=== PATIENT | male | born 1980 | race African-American/Black ===

== ENCOUNTER 2020-02-12 17:25 | Emergency (ER) | payer SELFPAY ==
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
--- NOTE | 2020-02-12 19:26 | RADIOLOGY REPORT (SQ) ---
EXAM DESCRIPTION: CT FACIAL AREA WITHOUT IMAGES COMPLETED DATE/TIME: 02/12/2020 7:12 pm REASON FOR STUDY: left mandibular injury COMPARISON: None. TECHNIQUE: Noncontrasted images through the facial bones and orbits windowed for bone and soft tissu e. Additional coronal and sagittal reconstructed images reviewed. All images stored on PACS. All CT scanners at this facility use dose modulation, iterative reconstruction, and/or weight based d osing when appropriate to reduce radiation dose to as low as reasonably achievable (ALARA). [facility]: Dose Right [facility]: CareDose [facility]: Dose Right [facility]: Teradose 4D [facility]: [employer] RADIATION DOSE: CT Rad equipment meets quality standard of care and radiation dose reduction techniq ues were employed. CTDIvol: 30.4 mGy. DLP: 576 mGy-cm. mGy. LIMITATIONS: None. FINDINGS: FACIAL BONES: There is a fracture of the mandible just to the right of the midline. There is a 2nd fracture of the mandible at the level of the coronoid process on the left. There is a ques tionable fracture of the superior nasal spine with minimal depression of the distal fragment. This m ay not be acute, given the absence of significant soft tissue swelling in this area. ORBITS: Intact. No fracture. Symmetric intact globes and retroorbital soft tissues. PARANASAL SINUSES: Clear. No significant mucosal thickening, mass or fluid. No nasal polyps. Maxill elinor sinus outlets are patent. SOFT TISSUES: No mass or edema. INFERIOR BRAIN: Limited view. No acute findings. OTHER: No other significant finding. IMPRESSION: Mandibular fractures as described. Questionable fracture of the superior nasal spine. TECHNICAL DOCUMENTATION: JOB ID: [id number] Quality ID # [id number]: Final reports with documentation of one or more dose reduction techniques (e.g., Au tomated exposure control, adjustment of the mA and/or kV according to patient size, use of iterative reconstruction technique) 2010 [employer]- All Rights Reserved Reading location - IP/workstation name: [email or web address]
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
[2020-02-12] MEDS ORDERED: HYDROCODONE/ACETAMINOPHEN 5-325 MG (6 TAB/ER DISP) PO PRN (20:29)
[2020-02-12 20:38] VITALS: BP 116/70
== END 2020-02-12 20:38 | disposition home or self-care (01) ==
LOC: ER 17:25
DX: S02.609A Fracture of mandible, unspecified, initial encounter for closed fracture (principal); S02.632A Fracture of coronoid process of left mandible, initial encounter for closed fracture; Y08.89XA Assault by other specified means, initial encounter; Y93.89 Activity, other specified
CPT/HCPCS: 70486; 99284